=== PATIENT | female | born 1960 | race Two or more races ===

== ENCOUNTER 2017-07-16 08:33 | Outpatient (CLI) | payer OTHER ==
[~2017-07-16 08:33] MED LIST: CATAFLAM50 MG; CIPRO500 MG PO; FLEXERIL 10 MG PO; FLONASE16 GM NS; GILTUSS TR TAB1 EACH PO; INDERAL LA120 MG; INDERAL LA120 MG PO; ROPINIROLE HCL0.5 MG; SYNTHROID112 MCG; TOBREX5 ML OP; TORADOL60 MG IM; VOLTAREM 50 MG PO; ZYRTEC10 MG PO
== END 2017-07-16 08:37 | disposition home or self-care (01) ==
LOC: LAB 08:33
DX: E03.8 Other specified hypothyroidism (principal)

== ENCOUNTER 2017-08-10 08:59 | Outpatient (CLI) | payer OTHER | END 2017-08-10 09:18 | disposition home or self-care (01) | LOC: SONOGRAMA 08:59 | DX: M65.811 Other synovitis and tenosynovitis, right shoulder (principal) ==

== ENCOUNTER → 2017-10-12 06:19 | Outpatient (CLI) | payer OTHER | END | disposition home or self-care (01) | LOC: LAB 06:19 | DX: N39.0 Urinary tract infection, site not specified (principal); E78.5 Hyperlipidemia, unspecified; E03.9 Hypothyroidism, unspecified; M81.0 Age-related osteoporosis without current pathological fracture ==

== ENCOUNTER → 2017-10-29 12:05 | Outpatient (CLI) | payer OTHER | END | disposition home or self-care (01) | LOC: RAD 12:05 | DX: M17.12 Unilateral primary osteoarthritis, left knee (principal) ==

== ENCOUNTER 2018-02-24 05:55 | Outpatient (CLI) | payer OTHER | END 2018-02-24 06:40 | disposition home or self-care (01) | LOC: LAB 05:55 | DX: E03.8 Other specified hypothyroidism (principal); E89.0 Postprocedural hypothyroidism ==

== ENCOUNTER → 2018-07-08 13:00 | Outpatient (CLI) | payer OTHER | END | disposition home or self-care (01) | LOC: LAB 13:00 | DX: E03.8 Other specified hypothyroidism (principal) ==

== ENCOUNTER 2018-09-06 07:09 | Outpatient (CLI) | payer OTHER | END 2018-09-06 08:33 | disposition home or self-care (01) | LOC: LAB 07:09 | DX: R42 Dizziness and giddiness (principal); Z00.00 Encounter for general adult medical examination without abnormal findings; E03.8 Other specified hypothyroidism; E78.4 Other hyperlipidemia; I10 Essential (primary) hypertension ==

== ENCOUNTER 2018-10-05 13:07 | Outpatient (CLI) | payer OTHER | END 2018-10-05 13:13 | disposition home or self-care (01) | LOC: SONOGRAMA 13:07 | DX: R10.2 Pelvic and perineal pain (principal) ==

== ENCOUNTER 2018-11-07 11:20 | Outpatient (CLI) | payer OTHER | END 2018-11-07 11:23 | disposition home or self-care (01) | LOC: LAB 11:20 | DX: E03.8 Other specified hypothyroidism (principal) ==

== ENCOUNTER 2019-02-13 14:12 | Outpatient (CLI) | payer OTHER | END 2019-02-13 16:49 | disposition home or self-care (01) | LOC: LAB 14:12 | DX: E03.8 Other specified hypothyroidism (principal) ==

== ENCOUNTER 2019-03-27 15:00 | Outpatient (CLI) | payer OTHER | END 2019-03-27 15:05 | disposition home or self-care (01) | LOC: LAB 15:00 | DX: J11.1 Influenza due to unidentified influenza virus with other respiratory manifestations (principal); R05 Cough ==

== ENCOUNTER 2019-05-25 11:02 | Outpatient (CLI) | payer OTHER | END 2019-05-25 11:08 | disposition home or self-care (01) | LOC: LAB 11:02 | DX: R05 Cough (principal); I10 Essential (primary) hypertension; E03.8 Other specified hypothyroidism ==

== ENCOUNTER 2019-07-19 15:33 | Outpatient (CLI) | payer OTHER | END 2019-07-19 16:22 | disposition home or self-care (01) | LOC: RAD 15:33 | DX: T14.8XXA Other injury of unspecified body region, initial encounter (principal); S66.109A Unspecified injury of flexor muscle, fascia and tendon of unspecified finger at wrist and hand level, initial encounter ==

== ENCOUNTER → 2019-08-01 | Outpatient (CLI) | payer OTHER | END | disposition home or self-care (01) | LOC: RX STUDY 08:05 | DX: R10.84 Generalized abdominal pain (principal); R13.10 Dysphagia, unspecified; K21.9 Gastro-esophageal reflux disease without esophagitis ==

== ENCOUNTER 2019-09-01 06:03 | Outpatient (CLI) | payer OTHER | END 2019-09-01 06:07 | disposition home or self-care (01) | LOC: LAB 06:03 | DX: E78.49 Other hyperlipidemia (principal); E03.8 Other specified hypothyroidism; M81.0 Age-related osteoporosis without current pathological fracture; N39.0 Urinary tract infection, site not specified ==

== ENCOUNTER 2019-11-02 14:15 | Outpatient (CLI) | payer OTHER ==
[2019-11-03] MEDS ORDERED: SYNTHROID112 MCG (17:03)
[2019-11-03] MEDS ORDERED: INDERAL XL80 MG (17:03)
== END 2019-11-02 14:24 | disposition home or self-care (01) ==
LOC: LAB 14:15
DX: J11.1 Influenza due to unidentified influenza virus with other respiratory manifestations (principal); R05 Cough; R06.02 Shortness of breath; Z13.6 Encounter for screening for cardiovascular disorders

== ENCOUNTER 2019-11-03 16:36 | Emergency (ER) | payer OTHER ==
[~2019-11-03] VITALS: Ht 172.7 cm; Wt 92.5 kg
[2019-11-03] MEDS ORDERED: SYNTHROID112 MCG (17:03)
[2019-11-03] MEDS ORDERED: INDERAL XL80 MG (17:03)
== END 2019-11-03 19:18 | disposition home or self-care (01) ==
LOC: ER 16:36
DX: J39.2 Other diseases of pharynx (principal); R51 Headache; F06.4 Anxiety disorder due to known physiological condition

== ENCOUNTER 2019-11-10 14:09 | Outpatient (CLI) | payer OTHER ==
[~2019-11-10 14:09] MED LIST changes: +INDERAL XL80 MG
== END 2019-11-10 16:12 | disposition home or self-care (01) ==
LOC: TOM 14:09
DX: R22.1 Localized swelling, mass and lump, neck (principal)

== ENCOUNTER 2019-11-28 14:22 | Outpatient (CLI) | payer OTHER ==
[~2019-11-28] VITALS: Ht 172.7 cm; Wt 90.7 kg
[2019-11-28] MEDS ORDERED: PRILOSEC OTC20 MG PO (15:28)
[2019-11-28] MEDS ORDERED: PEPCID40 MG PO (15:29)
== END 2019-11-28 15:39 | disposition home or self-care (01) ==
LOC: OFIC 805 14:22
DX: R07.0 Pain in throat (principal); K21.9 Gastro-esophageal reflux disease without esophagitis; J39.2 Other diseases of pharynx

== ENCOUNTER 2020-01-02 14:18 | Outpatient (CLI) | payer OTHER ==
[~2020-01-02 14:18] MED LIST changes: +PEPCID40 MG PO; +PRILOSEC OTC20 MG PO
== END 2020-01-02 16:24 | disposition home or self-care (01) ==
LOC: OFIC 805 14:18
PROVIDERS: ATTEND Otolaryngology
DX: K21.9 Gastro-esophageal reflux disease without esophagitis (principal); F45.8 Other somatoform disorders; R07.0 Pain in throat

== ENCOUNTER 2020-01-05 09:27 | Outpatient (CLI) | payer OTHER | END 2020-01-05 09:30 | disposition home or self-care (01) | LOC: SONOGRAMA 09:27 | PROVIDERS: ATTEND Otolaryngology | DX: R22.1 Localized swelling, mass and lump, neck (principal) ==

== ENCOUNTER 2020-01-16 14:52 | Outpatient (CLI) | payer OTHER | END 2020-01-16 15:10 | disposition home or self-care (01) | LOC: OFIC 805 14:52 | PROVIDERS: ATTEND Otolaryngology | DX: K21.9 Gastro-esophageal reflux disease without esophagitis (principal); F45.8 Other somatoform disorders; R07.0 Pain in throat; R22.1 Localized swelling, mass and lump, neck ==

== ENCOUNTER 2020-02-08 05:57 | Outpatient (CLI) | payer OTHER | END 2020-02-08 14:16 | disposition home or self-care (01) | LOC: LAB 05:57 | PROVIDERS: ATTEND General Practice | DX: M79.671 Pain in right foot (principal); M79.672 Pain in left foot; E03.8 Other specified hypothyroidism ==

== ENCOUNTER 2020-03-22 09:00 | Outpatient (CLI) | payer OTHER | END 2020-03-22 15:00 | disposition home or self-care (01) | LOC: PPH VACUNA 09:00 | DX: Z23 Encounter for immunization (principal) ==

== ENCOUNTER → 2020-05-14 | Outpatient (CLI) | payer OTHER | END | disposition home or self-care (01) | LOC: OFIC 805 05-01 14:30 | PROVIDERS: ATTEND Otolaryngology | DX: K21.9 Gastro-esophageal reflux disease without esophagitis (principal); R22.1 Localized swelling, mass and lump, neck; M26.69 Other specified disorders of temporomandibular joint; H92.02 Otalgia, left ear; H61.23 Impacted cerumen, bilateral ==

== ENCOUNTER → 2020-05-20 07:38 | Outpatient (CLI) | payer OTHER | END | disposition home or self-care (01) | LOC: LAB 07:38 | PROVIDERS: ATTEND Obstetrics & Gynecology | DX: D50.8 Other iron deficiency anemias (principal); E88.81 Metabolic syndrome and other insulin resistance; E03.8 Other specified hypothyroidism ==

== ENCOUNTER 2020-05-20 12:30 | Outpatient (CLI) | payer OTHER | END 2020-05-20 16:26 | disposition home or self-care (01) | LOC: MAMO-SONO 12:30 | PROVIDERS: ATTEND Obstetrics & Gynecology | DX: Z12.31 Encounter for screening mammogram for malignant neoplasm of breast (principal); N60.01 Solitary cyst of right breast; N60.02 Solitary cyst of left breast ==

== ENCOUNTER 2020-06-10 08:42 | Outpatient (CLI) | payer OTHER | END 2020-06-10 08:45 | disposition home or self-care (01) | LOC: NUCLEAR 08:42 | PROVIDERS: ATTEND Internal Medicine Cardiovascular Disease | DX: R07.89 Other chest pain (principal); I10 Essential (primary) hypertension; M81.0 Age-related osteoporosis without current pathological fracture; E55.9 Vitamin D deficiency, unspecified ==

== ENCOUNTER 2020-10-15 06:13 | Outpatient (CLI) | payer OTHER | END 2020-10-15 06:45 | disposition home or self-care (01) | LOC: LAB 06:13 | PROVIDERS: ATTEND Internal Medicine Cardiovascular Disease | DX: I10 Essential (primary) hypertension (principal); E11.9 Type 2 diabetes mellitus without complications; E03.8 Other specified hypothyroidism; E78.49 Other hyperlipidemia; E55.9 Vitamin D deficiency, unspecified ==

== ENCOUNTER → 2020-12-30 08:48 | Outpatient (CLI) | payer OTHER | END | disposition home or self-care (01) | LOC: LAB 08:48 | PROVIDERS: ATTEND Obstetrics & Gynecology | DX: A60.00 Herpesviral infection of urogenital system, unspecified (principal) ==

== ENCOUNTER 2021-02-07 08:47 | Outpatient (CLI) | payer OTHER | END 2021-02-07 09:03 | disposition home or self-care (01) | LOC: LAB 08:47 | PROVIDERS: ATTEND Internal Medicine Endocrinology, Diabetes & Metabolism | DX: E03.8 Other specified hypothyroidism (principal); E78.2 Mixed hyperlipidemia ==

== ENCOUNTER 2021-03-31 08:00 | Outpatient (CLI) | payer OTHER | END 2021-03-31 08:30 | disposition home or self-care (01) | LOC: PPH VACUNA 08:00 | PROVIDERS: ATTEND Emergency Medicine Pediatric Emergency Medicine | DX: Z23 Encounter for immunization (principal) ==

== ENCOUNTER 2021-04-08 08:00 | Outpatient (CLI) | payer OTHER | END 2021-04-08 08:30 | disposition home or self-care (01) | LOC: PPH VACUNA 08:00 | PROVIDERS: ATTEND Emergency Medicine Pediatric Emergency Medicine | DX: Z23 Encounter for immunization (principal) ==

== ENCOUNTER 2021-06-02 10:23 | Outpatient (CLI) | payer OTHER | END 2021-06-02 10:26 | disposition home or self-care (01) | LOC: LAB 10:23 | PROVIDERS: ATTEND Obstetrics & Gynecology | DX: I10 Essential (primary) hypertension (principal); N39.0 Urinary tract infection, site not specified; E11.9 Type 2 diabetes mellitus without complications ==

== ENCOUNTER 2021-12-12 06:16 | Outpatient (CLI) | payer OTHER | END 2021-12-12 06:21 | disposition home or self-care (01) | LOC: LAB 06:16 | PROVIDERS: ATTEND Internal Medicine Endocrinology, Diabetes & Metabolism | DX: E78.00 Pure hypercholesterolemia, unspecified (principal); E11.65 Type 2 diabetes mellitus with hyperglycemia; E03.8 Other specified hypothyroidism ==

== ENCOUNTER 2022-02-13 07:44 | Outpatient (CLI) | payer OTHER | END 2022-02-13 07:45 | disposition home or self-care (01) | LOC: LAB 07:44 | PROVIDERS: ATTEND Internal Medicine Endocrinology, Diabetes & Metabolism | DX: E03.8 Other specified hypothyroidism (principal) ==

== ENCOUNTER 2022-03-25 09:13 | Outpatient (CLI) | payer OTHER | END 2022-03-25 09:18 | disposition home or self-care (01) | LOC: PPH VACUNA 09:13 | PROVIDERS: ATTEND Emergency Medicine Pediatric Emergency Medicine | DX: Z23 Encounter for immunization (principal) ==

== ENCOUNTER 2022-06-12 06:23 | Outpatient (CLI) | payer OTHER | END 2022-06-12 06:26 | disposition home or self-care (01) | LOC: LAB 06:23 | PROVIDERS: ATTEND Obstetrics & Gynecology | DX: K22.10 Ulcer of esophagus without bleeding (principal); D50.9 Iron deficiency anemia, unspecified; E03.9 Hypothyroidism, unspecified ==

== ENCOUNTER 2022-12-04 06:31 | Outpatient (CLI) | payer OTHER | END 2022-12-04 06:36 | disposition home or self-care (01) | LOC: LAB 06:31 | DX: D50.9 Iron deficiency anemia, unspecified (principal); E03.9 Hypothyroidism, unspecified; N39.0 Urinary tract infection, site not specified; R22.1 Localized swelling, mass and lump, neck ==

== ENCOUNTER 2022-12-10 11:32 | Outpatient (CLI) | payer OTHER | END 2022-12-10 11:38 | disposition home or self-care (01) | LOC: NUCLEAR 11:32 | DX: I87.2 Venous insufficiency (chronic) (peripheral) (principal) ==

== ENCOUNTER 2022-12-14 12:51 | Outpatient (CLI) | payer OTHER | END 2022-12-14 12:56 | disposition home or self-care (01) | LOC: SONOGRAMA 12:51 | PROVIDERS: ATTEND Otolaryngology | DX: R22.1 Localized swelling, mass and lump, neck (principal); E04.1 Nontoxic single thyroid nodule ==

== ENCOUNTER 2023-03-26 11:00 | Outpatient (CLI) | payer OTHER | END 2023-03-26 11:10 | disposition home or self-care (01) | LOC: PPH VACUNA 11:00 | PROVIDERS: ATTEND Emergency Medicine Pediatric Emergency Medicine | DX: Z23 Encounter for immunization (principal) | CPT/HCPCS: 90686; G0008 ==

== ENCOUNTER 2023-04-22 07:00 | Inpatient (IN) | payer OTHER ==
[~2023-04-22] VITALS: Ht 172.7 cm; Wt 94.3 kg
[2023-04-22] MEDS ORDERED: MIRAPEX0.25 MG PO (07:55)
[2023-04-22] MEDS ORDERED: SYNTHROID125 MCG PO (07:55)
[2023-04-22] MEDS ORDERED: TOPROL XL50 M1 PO (07:56)
[2023-04-22 08:02] LABS: PH,URINE 5.5 (5.0-8.0); URINE APPEARANCE Clear; URINE BILIRRUBIN Negative (NEGATIVE); URINE BLOOD Small; URINE COLOR Yellow; URINE GLUCOSE Negative (NEGATIVE); URINE LEUKOCYTE Negative; URINE NITRATE Negative; URINE PROTEIN Negative (NEGATIVE); URINE UROBILINOGEN 0.2 E.U./dl
[2023-04-22 08:06] LABS: URINE EPITHELIAL CELLS 2.1 uL (0.0-38.8); URINE RBC 19.9 uL (0.0-20.8); URINE WBC 2.3 uL (0.0-23.2)
[2023-04-22 08:08] LABS: HEMATOCRIT 35.4 % (36.0-45.00); HEMOGLOBIN 12.3 g/dL (12.0-15.00); MEAN CELL VOLUME 91.6 fL (80.00-100.00); MEAN CORPUSCULAR HEMOGLOBIN 31.8 pg (27.00-32.0); MEAN CORPUSCULAR HGB CONC 34.7 g/dl (32.0-36.0); PLATELET COUNT 272 K/uL (150-450); RED BLOOD COUNT 3.86 M/uL (4.00-6.00); RED CELL DISTRIBUTION WIDTH 13.5 % (11.5-14.5)
[2023-04-22 08:21] LABS: INR 0.97; PARTIAL THROMBOPLASTIN TIME 28.9 SECONDS (22.0-34.0); PROTHROMBIN TIME 10.2 SECONDS (9.0-11.5)
[2023-04-22 08:42] LABS: ALBUMIN 3.7 gm/dL (3.4-5.0); BILIRUBIN TOTAL 1.08 mg/dL (0.3-1.2); CREATININE SERUM 0.67 mg/dL (0.55-1.02); GFR 89.18; GLOBULINA 3.4 G/DL (2.4-3.5); POTASSIUM 3.66 mEq/L (3.5-5.1); TOTAL PROTEIN 7.1 gm/dL (6.4-8.2)
[2023-04-26 13:40] LABS: HEMATOCRIT 30.6 % (36.0-45.00); HEMOGLOBIN 10.2 g/dL (12.0-15.00); RED BLOOD COUNT 3.26 M/uL (4.00-6.00)
[2023-04-27 07:07] LABS: HEMATOCRIT 25.3 % (36.0-45.00); MEAN CELL VOLUME 92.1 fL (80.00-100.00); MEAN CORPUSCULAR HEMOGLOBIN 31.3 pg (27.00-32.0); MEAN CORPUSCULAR HGB CONC 34.1 g/dl (32.0-36.0); PLATELET COUNT 215 K/uL (150-450); RED BLOOD COUNT 2.74 M/uL (4.00-6.00); RED CELL DISTRIBUTION WIDTH 13.5 % (11.5-14.5)
[2023-04-27 07:08] LABS: HEMOGLOBIN 8.6 g/dL (12.0-15.00)
[2023-04-27 07:15] LABS: CALCIUM 8.2 mg/dL (8.5-10.1); CREATININE SERUM 0.65 mg/dL (0.55-1.02); GFR 92.36; MAGNESIUM 2.1 mg/dL (1.8-2.4); POTASSIUM 4.78 mEq/L (3.5-5.1)
[2023-04-28 03:46] LABS: HEMATOCRIT 27.7 % (36.0-45.00); HEMOGLOBIN 9.5 g/dL (12.0-15.00); MEAN CELL VOLUME 89.6 fL (80.00-100.00); MEAN CORPUSCULAR HEMOGLOBIN 30.7 pg (27.00-32.0); MEAN CORPUSCULAR HGB CONC 34.3 g/dl (32.0-36.0); PLATELET COUNT 198 K/uL (150-450); RED BLOOD COUNT 3.09 M/uL (4.00-6.00); RED CELL DISTRIBUTION WIDTH 15.7 % (11.5-14.5)
[2023-04-28] MEDS ORDERED: XARELTO10 MG PO ×2 (06:04)
[2023-04-28] MEDS ORDERED: BACTRIM DS TAB1 EACH PO ×2 (06:04)
[2023-04-28] MEDS ORDERED: TRAM1TAB98 PO ×2 (06:04)
[2023-04-28] MEDS ORDERED: INTEGRA PLUS C1 EACH PO ×2 (06:04)
== END 2023-04-28 12:47 | DRG 470 ==
LOC: O/R 04-26 05:15 → SURG 04-26 07:00 → O/R 04-26 10:10 → SURH 04-26 10:59
PROVIDERS: Internal Medicine; ADMIT Orthopaedic Surgery Sports Medicine; ATTEND Orthopaedic Surgery Sports Medicine
PROC: 30233N1 Transfusion of Nonautologous Red Blood Cells into Peripheral Vein, Percutaneous Approach (ICD-10-PCS; 2023-04-26)
PROC: 0SRC0J9 Replacement of Right Knee Joint with Synthetic Substitute, Cemented, Open Approach (ICD-10-PCS; principal; 2023-04-26 07:00)
DX: M17.11 Unilateral primary osteoarthritis, right knee (principal); D62 Acute posthemorrhagic anemia; E03.9 Hypothyroidism, unspecified; Z20.822 Contact with and (suspected) exposure to COVID-19; I10 Essential (primary) hypertension

== ENCOUNTER 2023-06-07 08:47 | Outpatient (CLI) | payer OTHER ==
[~2023-06-07 08:47] MED LIST changes: +BACTRIM DS TAB1 EACH PO; +INTEGRA PLUS C1 EACH PO; +MIRAPEX0.25 MG PO; +SYNTHROID125 MCG PO; +TOPROL XL50 M1 PO; +TRAM1TAB98 PO; +XARELTO10 MG PO
[2023-06-07 09:17] LABS: HEMATOCRIT 34.2 % (36.0-45.00); HEMOGLOBIN 11.7 g/dL (12.0-15.00); MEAN CELL VOLUME 92.9 fL (80.00-100.00); MEAN CORPUSCULAR HEMOGLOBIN 31.7 pg (27.00-32.0); MEAN CORPUSCULAR HGB CONC 34.1 g/dl (32.0-36.0); PLATELET COUNT 337 K/uL (150-450); RED BLOOD COUNT 3.68 M/uL (4.00-6.00); RED CELL DISTRIBUTION WIDTH 14.3 % (11.5-14.5)
[2023-06-07 09:56] LABS: ALBUMIN 3.7 gm/dL (3.4-5.0); BILIRUBIN TOTAL 0.99 mg/dL (0.3-1.2); CALCIUM 9.5 mg/dL (8.5-10.1); CREATININE SERUM 0.66 mg/dL (0.55-1.02); GFR 90.75; GLOBULINA 3.7 G/DL (2.4-3.5); POTASSIUM 4.66 mEq/L (3.5-5.1); TOTAL PROTEIN 7.4 gm/dL (6.4-8.2); TSH 2.39 uIU/mL (0.358-3.74)
[2023-06-07 10:29] LABS: T4 FREE 2.04 NG/ML (0.76-1.46)
== END 2023-06-07 09:34 | disposition home or self-care (01) ==
LOC: LAB 08:47
PROVIDERS: ATTEND Specialist
DX: R79.9 Abnormal finding of blood chemistry, unspecified (principal); Z13.228 Encounter for screening for other metabolic disorders; E03.9 Hypothyroidism, unspecified

== ENCOUNTER 2023-07-16 07:36 | Outpatient (CLI) | payer OTHER | END 2023-07-16 07:42 | disposition home or self-care (01) | LOC: RAD 07:36 | PROVIDERS: ATTEND Orthopaedic Surgery Sports Medicine | DX: M17.11 Unilateral primary osteoarthritis, right knee (principal) ==

== ENCOUNTER 2024-02-14 08:56 | Outpatient (CLI) | payer OTHER ==
[2024-02-14 09:28] LABS: HEMATOCRIT 35.7 % (36.0-45.00); HEMOGLOBIN 12.2 g/dL (12.0-15.00); MEAN CELL VOLUME 90.8 fL (80.00-100.00); MEAN CORPUSCULAR HEMOGLOBIN 31.1 pg (27.00-32.0); MEAN CORPUSCULAR HGB CONC 34.3 g/dl (32.0-36.0); PLATELET COUNT 301 K/uL (150-450); RED BLOOD COUNT 3.93 M/uL (4.00-6.00); RED CELL DISTRIBUTION WIDTH 13.8 % (11.5-14.5)
[2024-02-14 09:41] LABS: ERYTHROCYTE SEDIMENTATION RATE 42 mm/hr
[2024-02-14 10:15] LABS: PH,URINE 6.5 (5.0-8.0); URINE APPEARANCE Clear; URINE BILIRRUBIN Negative (NEGATIVE); URINE BLOOD NHT; URINE COLOR Yellow; URINE GLUCOSE Negative (NEGATIVE); URINE KETONE Negative (NEGATIVE); URINE LEUKOCYTE Negative; URINE NITRATE Negative; URINE PROTEIN Negative (NEGATIVE); URINE UROBILINOGEN 0.2 E.U./dl
[2024-02-14 10:20] LABS: URINE EPITHELIAL CELLS 2.3 uL (0.0-38.8); URINE RBC 17.2 uL (0.0-20.8); URINE WBC 2.4 uL (0.0-23.2)
[2024-02-14 10:41] LABS: ALBUMIN 3.7 gm/dL (3.4-5.0); ALKALINE PHOSPHATASE 96 U/L (50-136); ALT/SGPT 21 U/L (12-78); ANION GAP 6 (10.0-20.0); AST/SGOT 17 U/L (15-37); BILIRUBIN TOTAL 1.13 mg/dL (0.3-1.2); BLOOD UREA NITROGEN 19 mg/dL (7-18); BUN CREA RATIO 34 (7.0-25.0); CALCIUM 9.2 mg/dL (8.5-10.1); CARBON DIOXIDE 31 mEq/L (21-32); CHLORIDE 110 mmol/L (98-107); CHOL HDL RATIO 2.7 (0-5.0); CHOLESTEROL 184 mg/dL (0-200); CREATININE SERUM 0.56 mg/dL (0.55-1.02); FREE TRIODOTIRONINE 2.36 pg/ml (2.18-3.98); GFR 109.34; GLOBULINA 3.6 G/DL (2.4-3.5); GLUCOSE FASTING 100 mg/dL (65-100); HDL 69 mg/dl (40-60); LDL 101 mg/dl (0-130); OSMOLALITY SERUM 287 MOSM/KG (275-295); SODIUM 143 mmol/L (136-145); T4 TOTAL 9.83 UG/DL (4.8-13.9); TOTAL PROTEIN 7.3 gm/dL (6.4-8.2); TRIGLYCERIDES 71 mg/dL (0-150); TSH 0.848 uIU/mL (0.358-3.74); VLDL 14 (0-39)
[2024-02-14 10:42] LABS: C-REACTIVE PROTEIN < 0.29 MG/DL (0.00-0.29)
[2024-02-14 11:30] LABS: ob NEGATIVE (NEGATIVE)
== END 2024-02-14 15:34 | disposition home or self-care (01) ==
LOC: LAB 08:56
PROVIDERS: ATTEND Internal Medicine
DX: E55.9 Vitamin D deficiency, unspecified (principal); R00.2 Palpitations; J45.30 Mild persistent asthma, uncomplicated; M19.91 Primary osteoarthritis, unspecified site; R73.9 Hyperglycemia, unspecified; Z13.220 Encounter for screening for lipoid disorders; Z12.10 Encounter for screening for malignant neoplasm of intestinal tract, unspecified; E03.9 Hypothyroidism, unspecified

== ENCOUNTER 2024-03-09 10:01 | Outpatient (CLI) | payer OTHER | END 2024-03-09 10:02 | disposition home or self-care (01) | LOC: LAB 10:01 | PROVIDERS: ATTEND Preventive Medicine Occupational Medicine | DX: B19.10 Unspecified viral hepatitis B without hepatic coma (principal) ==

== ENCOUNTER → 2024-04-04 06:22 | Outpatient (CLI) | payer OTHER ==
[2024-04-04 07:31] LABS: HEMATOCRIT 35.7 % (36.0-45.00); HEMOGLOBIN 12.5 g/dL (12.0-15.00); MEAN CELL VOLUME 90.9 fL (80.00-100.00); MEAN CORPUSCULAR HEMOGLOBIN 31.9 pg (27.00-32.0); MEAN CORPUSCULAR HGB CONC 35.1 g/dl (32.0-36.0); PLATELET COUNT 288 K/uL (150-450); RED BLOOD COUNT 3.93 M/uL (4.00-6.00); RED CELL DISTRIBUTION WIDTH 13.3 % (11.5-14.5)
[2024-04-04 08:11] LABS: ALBUMIN 3.6 gm/dL (3.4-5.0); BILIRUBIN TOTAL 1.29 mg/dL (0.3-1.2); CALCIUM 9.3 mg/dL (8.5-10.1); CREATININE SERUM 0.58 mg/dL (0.55-1.02); GLOBULINA 3.6 G/DL (2.4-3.5); POTASSIUM 4.87 mEq/L (3.5-5.1); TOTAL PROTEIN 7.2 gm/dL (6.4-8.2)
== END | disposition home or self-care (01) ==
LOC: LAB 06:22
DX: D68.8 Other specified coagulation defects (principal); I10 Essential (primary) hypertension; E11.9 Type 2 diabetes mellitus without complications

== ENCOUNTER 2024-05-04 01:30 | Outpatient (CLI) | payer OTHER | END 2024-05-04 02:00 | disposition home or self-care (01) | LOC: PPH VACUNA 01:30 | PROVIDERS: ATTEND Emergency Medicine Pediatric Emergency Medicine | DX: Z23 Encounter for immunization (principal) ==

== ENCOUNTER 2024-05-10 07:33 | Outpatient (CLI) | payer OTHER | END 2024-05-10 14:26 | disposition home or self-care (01) | LOC: LAB 07:33 | PROVIDERS: ATTEND Internal Medicine Gastroenterology | DX: Z00.00 Encounter for general adult medical examination without abnormal findings (principal) ==

== ENCOUNTER 2024-06-05 06:06 | Outpatient (CLI) | payer OTHER ==
[2024-06-05 06:55] LABS: HEMATOCRIT 37.1 % (36.0-45.00); HEMOGLOBIN 12.3 g/dL (12.0-15.00); MEAN CELL VOLUME 92.5 fL (80.00-100.00); MEAN CORPUSCULAR HEMOGLOBIN 30.7 pg (27.00-32.0); MEAN CORPUSCULAR HGB CONC 33.2 g/dl (32.0-36.0); PLATELET COUNT 293 K/uL (150-450); RED BLOOD COUNT 4.02 M/uL (4.00-6.00); RED CELL DISTRIBUTION WIDTH 13.4 % (11.5-14.5)
[2024-06-05 07:06] LABS: URINE APPEARANCE Clear; URINE BILIRRUBIN Negative (NEGATIVE); URINE BLOOD Trace; URINE COLOR Yellow; URINE GLUCOSE Negative (NEGATIVE); URINE KETONE Negative (NEGATIVE); URINE LEUKOCYTE Negative; URINE NITRATE Negative; URINE PROTEIN Negative (NEGATIVE); URINE UROBILINOGEN 0.2 E.U./dl
[2024-06-05 07:08] LABS: ERYTHROCYTE SEDIMENTATION RATE 57 mm/hr; URINE EPITHELIAL CELLS 1.5 uL (0.0-38.8); URINE RBC 18.1 uL (0.0-20.8); URINE WBC 2.9 uL (0.0-23.2)
[2024-06-05 08:05] LABS: ALBUMIN 3.8 gm/dL (3.4-5.0); ALKALINE PHOSPHATASE 113 U/L (50-136); ALT/SGPT 17 U/L (12-78); ANION GAP 8 (10.0-20.0); AST/SGOT 18 U/L (15-37); BILIRUBIN TOTAL 1.25 mg/dL (0.3-1.2); BLOOD UREA NITROGEN 17 mg/dL (7-18); BUN CREA RATIO 30 (7.0-25.0); CALCIUM 9.4 mg/dL (8.5-10.1); CARBON DIOXIDE 30 mEq/L (21-32); CHLORIDE 107 mmol/L (98-107); CHOLESTEROL 205 mg/dL (0-200); CREATININE SERUM 0.57 mg/dL (0.55-1.02); FREE TRIODOTIRONINE 2.33 pg/ml (2.18-3.98); GFR 107.13; GLOBULINA 3.7 G/DL (2.4-3.5); GLUCOSE FASTING 91 mg/dL (65-100); HDL 69 mg/dl (40-60); LDL 117 mg/dl (0-130); OSMOLALITY SERUM 282 MOSM/KG (275-295); POTASSIUM 4.18 mEq/L (3.5-5.1); SODIUM 141 mmol/L (136-145); TOTAL PROTEIN 7.5 gm/dL (6.4-8.2); TRIGLYCERIDES 96 mg/dL (0-150); VLDL 19 (0-39)
[2024-06-05 08:13] LABS: C-REACTIVE PROTEIN < 0.29 MG/DL (0.00-0.29)
== END 2024-06-05 06:54 | disposition home or self-care (01) ==
LOC: LAB 06:06
PROVIDERS: ATTEND Internal Medicine
DX: J45.30 Mild persistent asthma, uncomplicated (principal); R00.2 Palpitations; E55.9 Vitamin D deficiency, unspecified; M19.91 Primary osteoarthritis, unspecified site; R73.9 Hyperglycemia, unspecified; Z13.220 Encounter for screening for lipoid disorders; E03.9 Hypothyroidism, unspecified; Z12.10 Encounter for screening for malignant neoplasm of intestinal tract, unspecified

== ENCOUNTER → 2024-09-08 06:09 | Outpatient (CLI) | payer OTHER ==
[2024-09-08 07:58] LABS: HEMATOCRIT 36.2 % (36.0-45.00); HEMOGLOBIN 12.5 g/dL (12.0-15.00); MEAN CELL VOLUME 91.2 fL (80.00-100.00); MEAN CORPUSCULAR HEMOGLOBIN 31.5 pg (27.00-32.0); MEAN CORPUSCULAR HGB CONC 34.5 g/dl (32.0-36.0); PLATELET COUNT 294 K/uL (150-450); RED BLOOD COUNT 3.97 M/uL (4.00-6.00); RED CELL DISTRIBUTION WIDTH 13.6 % (11.5-14.5)
[2024-09-08 08:03] LABS: URINE APPEARANCE Clear; URINE BILIRRUBIN Negative (NEGATIVE); URINE BLOOD Trace; URINE COLOR Yellow; URINE GLUCOSE Negative (NEGATIVE); URINE KETONE Negative (NEGATIVE); URINE LEUKOCYTE Negative; URINE NITRATE Negative; URINE PROTEIN Negative (NEGATIVE); URINE UROBILINOGEN 0.2 E.U./dl
[2024-09-08 08:05] LABS: URINE EPITHELIAL CELLS 2.6 uL (0.0-38.8); URINE RBC 21.5 uL (0.0-20.8); URINE WBC 4.7 uL (0.0-23.2)
[2024-09-08 08:08] LABS: ERYTHROCYTE SEDIMENTATION RATE 47 mm/hr
[2024-09-08 08:12] LABS: URINE BACTERIA 3.6 uL (0.0-1933); URINE CAST 0.29 uL (0.0-1.40)
[2024-09-08 09:33] LABS: ALBUMIN 3.8 gm/dL (3.4-5.0); ALKALINE PHOSPHATASE 106 U/L (50-136); ALT/SGPT 19 U/L (12-78); ANION GAP 8 (10.0-20.0); AST/SGOT 23 U/L (15-37); BILIRUBIN TOTAL 1.37 mg/dL (0.3-1.2); BLOOD UREA NITROGEN 14 mg/dL (7-18); BUN CREA RATIO 23 (7.0-25.0); CALCIUM 8.9 mg/dL (8.5-10.1); CARBON DIOXIDE 30 mEq/L (21-32); CHLORIDE 107 mmol/L (98-107); CHOL HDL RATIO 2.7 (0-5.0); CHOLESTEROL 187 mg/dL (0-200); CREATININE SERUM 0.61 mg/dL (0.55-1.02); GFR 99.06; GLOBULINA 3.5 G/DL (2.4-3.5); GLUCOSE FASTING 90 mg/dL (65-100); HDL 69 mg/dl (40-60); LDL 104 mg/dl (0-130); OSMOLALITY SERUM 279 MOSM/KG (275-295); POTASSIUM 4.83 mEq/L (3.5-5.1); SODIUM 140 mmol/L (136-145); T4 TOTAL 11.73 UG/DL (4.8-13.9); TOTAL PROTEIN 7.3 gm/dL (6.4-8.2); TRIGLYCERIDES 68 mg/dL (0-150); TSH 0.708 uIU/mL (0.358-3.74); VLDL 13 (0-39)
[2024-09-08 09:34] LABS: C-REACTIVE PROTEIN < 0.29 MG/DL (0.00-0.29)
== END | disposition home or self-care (01) ==
LOC: LAB 06:09
PROVIDERS: ATTEND Internal Medicine
DX: K44.9 Diaphragmatic hernia without obstruction or gangrene (principal); K29.00 Acute gastritis without bleeding; K30 Functional dyspepsia; B96.81 Helicobacter pylori [H. pylori] as the cause of diseases classified elsewhere; Z86.0100 Personal history of colon polyps, unspecified; J45.30 Mild persistent asthma, uncomplicated; R00.2 Palpitations; E55.9 Vitamin D deficiency, unspecified; M19.91 Primary osteoarthritis, unspecified site; R73.9 Hyperglycemia, unspecified; Z13.220 Encounter for screening for lipoid disorders; E03.9 Hypothyroidism, unspecified; Z12.10 Encounter for screening for malignant neoplasm of intestinal tract, unspecified

== ENCOUNTER 2024-12-08 06:05 | Outpatient (CLI) | payer OTHER ==
[2024-12-08 07:08] LABS: PH,URINE 5.5 (5.0-8.0); URINE APPEARANCE Clear; URINE BILIRRUBIN Negative (NEGATIVE); URINE BLOOD Small; URINE COLOR Yellow; URINE GLUCOSE Negative (NEGATIVE); URINE KETONE Negative (NEGATIVE); URINE LEUKOCYTE Negative; URINE NITRATE Negative; URINE PROTEIN Negative (NEGATIVE); URINE UROBILINOGEN 0.2 E.U./dl
[2024-12-08 07:09] LABS: URINE BACTERIA 4.8 uL (0.0-1933); URINE EPITHELIAL CELLS 1.4 uL (0.0-38.8); URINE RBC 10.7 uL (0.0-20.8); URINE WBC 2.1 uL (0.0-23.2)
[2024-12-08 07:10] LABS: BASO % 0.6 % (0.1-1.2); EOS # 0.17 (0.04-0.54); EOS % 3.2 % (0.7-7.0); HEMOGLOBIN 11.6 g/dL (11.2-15.7); LYMPH # 1.28 (1.18-3.74); LYMPH % 23.9 % (19.3-53.1); MEAN CORPUSCULAR HEMOGLOBIN 30.4 pg (25.6-32.2); MONO # 0.33 (0.24-0.82); MONO % 6.2 % (4.7-12.5); NEUT # 3.54 (1.56-6.13); NEUT % 65.9 % (34.0-71.1); PLATELET COUNT 297 K/uL (163-369); RED BLOOD COUNT 3.82 M/uL (3.93-5.22); RED CELL DISTRIBUTION WIDTH 12.4 % (11.6-14.4)
[2024-12-08 07:17] LABS: URINE CAST 0.29 uL (0.0-1.40)
[2024-12-08 07:32] LABS: ERYTHROCYTE SEDIMENTATION RATE 27 mm/hr (0-30)
[2024-12-08 07:52] LABS: ob NEGATIVE (NEGATIVE)
[2024-12-08 08:11] LABS: ALBUMIN 3.5 gm/dL (3.4-5.0); ALKALINE PHOSPHATASE 124 U/L (50-136); ALT/SGPT 22 U/L (12-78); ANION GAP 5 (10.0-20.0); AST/SGOT 20 U/L (15-37); BILIRUBIN TOTAL 1.28 mg/dL (0.3-1.2); BLOOD UREA NITROGEN 20 mg/dL (7-18); BUN CREA RATIO 32 (7.0-25.0); CALCIUM 8.9 mg/dL (8.5-10.1); CARBON DIOXIDE 31 mEq/L (21-32); CHLORIDE 109 mmol/L (98-107); CHOL HDL RATIO 2.9 (0-5.0); CHOLESTEROL 192 mg/dL (0-200); CREATININE SERUM 0.63 mg/dL (0.55-1.02); GFR 95.44; GLOBULINA 3.4 G/DL (2.4-3.5); GLUCOSE FASTING 88 mg/dL (65-100); HDL 66 mg/dl (40-60); LDL 115 mg/dl (0-130); OSMOLALITY SERUM 281 MOSM/KG (275-295); POTASSIUM 4.62 mEq/L (3.5-5.1); SODIUM 140 mmol/L (136-145); TOTAL PROTEIN 6.9 gm/dL (6.4-8.2); TRIGLYCERIDES 55 mg/dL (0-150); VLDL 11 (0-39)
[2024-12-08 08:12] LABS: C-REACTIVE PROTEIN < 0.29 MG/DL (0.00-0.29)
[2024-12-08 12:02] LABS: FREE TRIODOTIRONINE 2.28 pg/ml (2.18-3.98); T4 TOTAL 9.46 UG/DL (4.8-13.9)
== END 2024-12-08 06:06 | disposition home or self-care (01) ==
LOC: LAB 06:05
PROVIDERS: ATTEND Internal Medicine
DX: R00.2 Palpitations (principal); E03.9 Hypothyroidism, unspecified; Z12.10 Encounter for screening for malignant neoplasm of intestinal tract, unspecified; Z13.220 Encounter for screening for lipoid disorders; R73.9 Hyperglycemia, unspecified; M19.91 Primary osteoarthritis, unspecified site; E55.9 Vitamin D deficiency, unspecified; J45.30 Mild persistent asthma, uncomplicated

== ENCOUNTER 2025-05-03 10:00 | Outpatient (CLI) | payer OTHER | END 2025-05-03 10:10 | disposition home or self-care (01) | LOC: PPH VACUNA 10:00 | PROVIDERS: ATTEND Emergency Medicine Pediatric Emergency Medicine | DX: Z23 Encounter for immunization (principal) ==